=== PATIENT | male | born 1985 | race Hispanic/Latino ===

== ENCOUNTER 2017-10-30 02:21 | Emergency (ER) | payer BC ==
[2017-10-30 03:03] VITALS: RESP 18; O2SAT 98
[2017-10-30] MEDS ORDERED: Tdap Vaccine 0.5 ml Vial (10-64 yrs) IM ONE (03:13)
[2017-10-30] MEDS ORDERED: Bacitracin OINT 15GM TOP STA (03:13)
[2017-10-30] MEDS ORDERED: Lidocaine 1% Inj (20ml) IJ ONE (03:13)
[2017-10-30] MEDS ORDERED: Tetanus/Diphtheria Toxoids 0.5 ml Syringe IM ONE (03:28)
[2017-10-30] MEDS ORDERED: Lidocaine 2% MPF (5 ml) Inj INJ ONE (03:45)
[2017-10-30] MEDS ORDERED: LIDOCAINE 2% 10ML 20 MG/ML VIAL IJ ONE (04:15)
--- NOTE | 2017-10-30 04:46 | ED PDOC ---
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 Patient states that around midnight, he was attempting to remove a bottle cap with a knife when the blade slipped and he sustained the laceration. Bleeding was controlled [employer], but no meds were taken. No other complaints at present. Right hand dominant. Tetanus not up to date. PMD: none provided Past Medical History Reviewed: Historical Data, Nursing Documentation, Vital Signs Vital Signs: Last Vital Signs Temp 98.3 F 10/30/17 05:03 Pulse 122 H 10/30/17 05:03 Resp 18 10/30/17 03:01 BP 134/78 10/30/17 05:03 Pulse Ox 98 10/30/17 05:13 - Medical History Other PMH: ulcerative colitis - Surgical History Other surgeries: wisdom teeth extraction - Family History Family History: States: Unknown Family Hx - Social History Current smoker - smoking cessation education provided: No Alcohol: Social Drugs: Denies - Immunization History Hx Tetanus Toxoid Vaccination: No (will update this visit) - Home Medications Home Medications: Ambulatory Orders Medication Instructions Recorded Bacitracin Ointment [Bacitracin] 1 applic TOP BID #1 tube 10/30/17 - Allergies Allergies/Adverse Reactions: Allergies Allergy/AdvReac Type Severity Reaction Status Date / Time amoxicillin [From Augmentin] Allergy RASH Verified 10/30/17 03:01 clavulanic acid Allergy RASH Verified 10/30/17 03:01 [From Augmentin] Review of Systems ROS Statement: Except As Marked, All Systems Reviewed And Found Negative Skin: Positive for: Other (laceration to left thumb) Physical Exam - Reviewed Nursing Documentation Reviewed: Yes Vital Signs Reviewed: Yes - Physical Exam Comments: GENERAL APPEARANCE: Patient is awake, alert, oriented x 3, in no acute distress. Resting comfortably. SKIN: Warm, dry; (-) cyanosis. LEFT UPPER EXTREMITY: To dorsum of left 1st interphalangeal joint:1.5cm curvilinear, superficial laceration with no active bleeding or visualized FB; full ROM of thumb. Sensation and cap refill intact. Remainder of hand and wrist with full ROM, no tenderness. CHEST AND RESPIRATORY: (-) wheezing; (-) rales, (-) rhonchi, (-) rub; breath sounds equal bilaterally. Respirations even and nonlabored. HEART AND CARDIOVASCULAR: (-) irregularity NEURO AND PSYCH: Mental status as above. Gait steady, speech clear. (-) facial asymmetry (-) aphasia - ECG O2 Sat by Pulse Oximetry: 98 (RA) Pulse Ox Interpretation: Normal Medical Decision Making Medical Decision Making: Time: 309 Initial Impression: Left thumb laceration Initial Plan: --Tetanus booster --Lidocaine 2% 5mg IJ --Tylenol 650mg PO --Laceration Repair 429 Laceration repair performed by Elizabeth BRADY. See procedure note. Bacitracin and bandaid applied. Patient educated on wound care. Advised suture removal in 7-10 days. On exam, patient remains AAOx3, in no acute distress. Lungs clear to auscultation, cardiac RRR, repeat neuro exam shows no focal findings. VSS, stable for discharge. Lab/Diagnostic results d/w the patient in great detail. Diagnosis of finger laceration d/w the patient. Based on history, exam and diagnostic results, plan will be for outpatient follow up. Patient instructed to follow-up with pmd / referral provided / the clinic in 1- 2 days without fail. Advised to take medication as prescribed. Return to the emergency room at any time for any new or worsening symptoms. Patient states he fully agrees with and understands discharge instructions. States that he agrees with the plan and disposition. Verbalized and repeated discharge instructions and plan. I have given the patient opportunity to ask any additional questions. Scribe Attestation: Documented by Elvia Shrestha, acting as a scribe for Roxy Johnson PA-C. Provider Scribe Attestation: All medical record entries made by the Scribe were at my direction and personally dictated by me. I have reviewed the chart and agree that the record accurately reflects my personal performance of the history, physical exam, medical decision making, and the department course for this patient. I have also personally directed, reviewed, and agree with the discharge instructions and disposition. Disposition - Clinical Impression Clinical Impression: Finger laceration - Patient ED Disposition Is Patient to be Admitted: No Counseled Patient/Family Regarding: Studies Performed, Diagnosis, Need For Followup, Rx Given - Disposition Referrals: Emily Ortiz MD [Medical Doctor] - Garry Maldonado MD [Medical Doctor] - Disposition: Routine/Home Disposition Time: 04:45 Condition: STABLE Additional Instructions: The emergency medical care you received today was directed towards the acute presenting symptoms. If you were prescribed any medication, please fill it and give as directed. It may take several days for your symptoms to resolve. Return to the Emergency Department at any time if symptoms worsen, do not improve, or if any other problems arise. Please contact your doctor in 2 days for re-evaluation and follow up / or call one of the physicians/clinics you have been referred to that are listed on the Patient Visit Information form that is included in your discharge packet. Bring any paperwork you were given at discharge with you along with any medications to your follow up visit. Our treatment cannot replace ongoing medical care by a primary care provider (PCP) outside of the emergency department. Prescriptions: Bacitracin Ointment [Bacitracin] 1 applic TOP BID #1 tube Instructions: Wound Care, Laceration Repair With Stitches (DC) Forms: [employer] (Azeri) Print Language: AFGHAN - POA Present On Arrival: None Procedure: Wound Repair - Time Performed Time Performed: 04:30 - Time Out Time Out: Side verified, Site verified, Patient ID confirmed - Procedure Procedure: Wound Repair: Thumb Laceration - Consent Obtained Consent obtained: Verbal - Performed by Performed by: Mid-level Provider (Elizabeth BRADY) - Indications Indication(s):: Laceration - Location Location:: Left Finger:: Thumb Shape:: Curvilinear Dimensions Length cm: 1.5cm Depth:: Epidermis - Anesthetic Technique Anesthetic Technique: Local Local/Regional Anesthetic:: Lidocaine 2% (1.5mL) - Debris Debris:: None - Irrigated Irrigated with ml of normal saline: 200 - Complexity Complexity:: Simple (one layer) - Wound repair method Sutures:: # (4 prolene), Size (5-0) - Complications Complications: None - Patient tolerated procedure Patient Tolerated Procedure:: Well
[2017-10-30 05:05] VITALS: BP 134/78; PULSE 122; TEMP 98.3
== END 2017-10-30 05:05 | disposition home or self-care (01) ==
LOC: H.ER 02:21
DX: S61.012A Laceration without foreign body of left thumb without damage to nail, initial encounter (principal); Z88.0 Allergy status to penicillin; W26.0XXA Contact with knife, initial encounter